=== PATIENT | male | born 1990 | race Caucasian/White ===

== ENCOUNTER 2018-09-03 15:28 | Emergency (ER) | payer BC ==
--- NOTE | 2018-09-03 15:55 | EDM.PDOC ---
ED HPI GENERAL MEDICAL PROBLEM - General Chief Complaint: Skin Complaint Stated Complaint: LEG PAIN Time Seen by Provider: 09/03/18 15:34 Source of Information: Reports: Patient History Limitations: Reports: No Limitations - History of Present Illness INITIAL COMMENTS - FREE TEXT/NARRATIVE: History of present illness: []Patient flew in from [place] 3 days ago and on the flight he noticed he had an ingrown hair on his upper inner left thigh. Working every day and this morning his pain became worse he decided to come in for evaluation. He denies any fevers , chills, vomiting, diarrhea, chest pain or shortness of breath. Have a history of DVTs. Review of systems: As per history of present illness and below otherwise all systems reviewed and negative. Past medical history: As per history of present illness and as reviewed below otherwise noncontributory. Surgical history: As per history of present illness and as reviewed below otherwise noncontributory. Social history: No reported history of drug or alcohol abuse. Family history: As per history of present illness and as reviewed below otherwise noncontributory. Physical exam: General: Well developed, well nourished in NAD HEENT: Atraumatic, normocephalic, pupils reactive, negative for conjunctival pallor or scleral icterus, mucous membranes moist, throat clear, neck supple, nontender, trachea midline. Lungs: Clear to auscultation, breath sounds equal bilaterally, chest nontender. Heart: S1S2, regular, negative for clicks, rubs, or JVD. Abdomen: NABS, Soft, nondistended, nontender. Negative for masses or hepatosplenomegaly. Negative for costovertebral tenderness. Pelvis: Stable nontender. Genitourinary: Deferred. Rectal: Deferred. Extremities: Upper left inner thigh erythematous with tender to touch. There is no abscess palpable or area of drainage there is an erythematous streak going down to his upper medial leg., negative for cords or calf pain. Neurovascular unremarkable. Neuro: Awake, alert, oriented. Cranial nerves II through XII unremarkable. Cerebellum unremarkable. Motor and sensory unremarkable throughout. Exam nonfocal. Skin:warm and dry Diagnostics: CBC, chemistry, blood cultures Therapeutics: Rocephin 1g ED Course: Stable Impression: Cellulitis with lymphangitis Prescriptions: Bactrim Plan: Follow-up with primary care within 1 week return to ER immediately if symptoms worsen or change. Definitive disposition and diagnosis as appropriate pending reevaluation and review of above. left thigh Pain Score (Numeric/FACES): 7 - Related Data Allergies Allergy/AdvReac Type Severity Reaction Status Date / Time No Known Allergies Allergy Verified 09/03/18 15:43 Home Meds: Home Meds Sulfamethoxazole/Trimethoprim [Bactrim Ds Tablet] 1 each PO BID #20 tablet 09/03 [Rx] Past Medical History - Past Health History Medical/Surgical History: Denies Medical/Surgical History Social & Family History - Family History Family Medical History: Noncontributory - Tobacco Use Smoking Status *Q: Never Smoker - Caffeine Use Caffeine Use: Reports: Coffee - Recreational Drug Use Recreational Drug Use: No ED ROS GENERAL - Review of Systems Review Of Systems: ROS reveals no pertinent complaints other than HPI. ED EXAM, SKIN/RASH Exam: See Below (See history of present illness) Course - Vital Signs Last Recorded V/S: Last Vital Signs Temp 98.3 F 09/03/18 15:43 Pulse 65 09/03/18 15:43 Resp 18 09/03/18 15:43 BP 149/96 H 09/03/18 15:45 Pulse Ox 97 09/03/18 15:43 - Orders/Labs/Meds Orders: Active Orders 24 hr Category Date Time Status COMPREHENSIVE METABOLIC PN,CMP [CHEM] Stat Lab 09/03/18 16:08 Received CULTURE BLOOD [BC] Stat Lab 09/03/18 16:08 Received CULTURE BLOOD [BC] Stat Lab 09/03/18 16:19 Received cefTRIAXone [Rocephin in Dextrose,Iso-Osm 1 GM/50 ML] 1 Med 09/03/18 16:20 Active gm Premix Bag 1 bag IV ONETIME Medication Orders Ceftriaxone Sodium/Dextrose 1 (gm/ Premix) 50 mls @ 100 mls/hr IV ONETIME ONE Stop: 09/03/18 16:49 Last Admin: 09/03/18 16:28 Dose: 100 mls/hr Labs: Laboratory Tests 09/03/18 Range/Units 16:08 WBC 11.08 H (4.0-11.0) K/uL RBC 5.26 (4.50-5.90) M/uL Hgb 15.6 (13.0-17.0) g/dL Hct 44.6 (38.0-50.0) % MCV 84.8 (80.0-98.0) fL MCH 29.7 (27.0-32.0) pg MCHC 35.0 (31.0-37.0) g/dL RDW Std Deviation 41.1 (28.0-62.0) fl RDW Coeff of Joshua 13 (11.0-15.0) % Plt Count 257 (150-400) K/uL MPV 10.80 (7.40-12.00) fL Neut % (Auto) 70.3 (48.0-80.0) % Lymph % (Auto) 19.7 (16.0-40.0) % Cass % (Auto) 9.2 (0.0-15.0) % Eos % (Auto) 0.7 (0.0-7.0) % Baso % (Auto) 0.1 (0.0-1.5) % Neut # (Auto) 7.8 H (1.4-5.7) K/uL Lymph # (Auto) 2.2 (0.6-2.4) K/uL Cass # (Auto) 1.0 H (0.0-0.8) K/uL Eos # (Auto) 0.1 (0.0-0.7) K/uL Baso # (Auto) 0.0 (0.0-0.1) K/uL Nucleated RBC % 0.0 /100WBC Nucleated RBCs # 0 K/uL Meds: Medications Generic Name Dose Route Start Last Admin Trade Name Freq PRN Reason Stop Dose Admin Ceftriaxone Sodium/Dextrose 1 50 mls @ 100 mls/hr 09/03/18 16:20 09/03/18 16: 28 gm/ Premix IV 09/03/18 16:49 100 mls/hr ONETIME ONE Administration Discontinued Medications Generic Name Dose Route Start Last Admin Trade Name Freq PRN Reason Stop Dose Admin Ceftriaxone Sodium 1,000 mg/ 1 mls @ 1 mls/sec 09/03/18 15:57 09/03/18 16:30 Lidocaine HCl IM 09/03/18 15:58 Not Given ONETIME ONE Departure - Departure Time of Disposition: 16:48 Disposition: Home, Self-Care 01 Condition: Good Clinical Impression: Cellulitis with lymphangitis - Discharge Information *PRESCRIPTION DRUG MONITORING PROGRAM REVIEWED*: No *COPY OF PRESCRIPTION DRUG MONITORING REPORT IN PATIENT STEPHANIE: No Prescriptions: Sulfamethoxazole/Trimethoprim [Bactrim Ds Tablet] 1 each PO BID #20 tablet Forms: ED Department Discharge Additional Instructions: The following information is given to patients seen in the emergency department who are being discharged to home. This information is to outline your options for follow-up care. We provide all patients seen in our emergency department with a follow-up referral. The need for follow-up, as well as the timing and circumstances, are variable depending upon the specifics of your emergency department visit. If you don't have a primary care physician on staff, we will provide you with a referral. We always advise you to contact your personal physician following an emergency department visit to inform them of the circumstance of the visit and for follow-up with them and/or the need for any referrals to a consulting specialist. The emergency department will also refer you to a specialist when appropriate. This referral assures that you have the opportunity for follow-up care with a specialist. All of these measure are taken in an effort to provide you with optimal care, which includes your follow-up. Under all circumstances we always encourage you to contact your private physician who remains a resource for coordinating your care. When calling for follow-up care, please make the office aware that this follow-up is from your recent emergency room visit. If for any reason you are refused follow-up, please contact the [facility] Emergency Department at and asked to speak to the emergency department charge nurse. Take meds as directed, follow up with your primary care physician, return to ER if symptoms worsen or change. [facility] [address] [place] [id number] - My Orders Last 24 Hours: My Active Orders 09/03/18 16:08 COMPREHENSIVE METABOLIC PN,CMP [CHEM] Stat CULTURE BLOOD [BC] Stat 09/03/18 16:19 CULTURE BLOOD [BC] Stat 09/03/18 16:20 cefTRIAXone [Rocephin in Dextrose,Iso-Osm 1 GM/50 ML] 1 gm Premix Bag 1 bag IV ONETIME - Assessment/Plan Last 24 Hours: My Active Orders 09/03/18 16:08 COMPREHENSIVE METABOLIC PN,CMP [CHEM] Stat CULTURE BLOOD [BC] Stat 09/03/18 16:19 CULTURE BLOOD [BC] Stat 09/03/18 16:20 cefTRIAXone [Rocephin in Dextrose,Iso-Osm 1 GM/50 ML] 1 gm Premix Bag 1 bag IV ONETIME
[2018-09-03] MEDS ORDERED: cefTRIAXone 1,000 MG in Lidocaine 1% 1 ML IM ONE (15:57)
[2018-09-03] MEDS ORDERED: cefTRIAXone 1 GM in Premix Bag 1 BAG IV ONE (16:20)
[2018-09-03 16:49] LABS: CHLORIDE,CL 103 mmol/L (98-107); SODIUM,NA 140 mmol/L (136-148)
== END 2018-09-03 17:20 | disposition home or self-care (01) ==
LOC: MW.ED 15:28
DX: L03.116 Cellulitis of left lower limb (principal)
CPT/HCPCS: 36415; 80053; 85025; 87040; 96365; 99283; J0696

== ENCOUNTER 2019-07-15 07:29 | Emergency (ER) | payer BC ==
--- NOTE | 2019-07-15 08:21 | EDM.PDOC ---
ED HPI GENERAL MEDICAL PROBLEM - General Chief Complaint: General Stated Complaint: POSSIBLE FLU Time Seen by Provider: 07/15/19 07:35 Source of Information: Reports: Patient - History of Present Illness INITIAL COMMENTS - FREE TEXT/NARRATIVE: Patient states that he thinks he has the flu. Complains of throat pain which began 2 days ago. Reports dry cough, bilateral ear pain, subjective fevers. Denies night sweats. Denies nausea, vomiting, diarrhea. No myalgias. Tried TheraFlu and NyQuil; symptoms persist. Ear Pain Score (Numeric/FACES): 10 - Related Data Allergies Allergy/AdvReac Type Severity Reaction Status Date / Time No Known Allergies Allergy Verified 07/15/19 07:43 Home Meds: Home Meds Oseltamivir [Tamiflu] 75 mg PO BID #10 cap 07/15/19 [Rx] Past Medical History - Past Health History Medical/Surgical History: Denies Medical/Surgical History - Infectious Disease History Infectious Disease History: Reports: None - Past Surgical History GI Surgical History: Reports: Appendectomy Social & Family History - Family History Family Medical History: Noncontributory (History of high blood pressure.) - Tobacco Use Smoking Status *Q: Never Smoker - Caffeine Use Caffeine Use: Reports: Coffee - Recreational Drug Use Recreational Drug Use: No ED ROS GENERAL - Review of Systems Review Of Systems: See Below (Systems is positive for ear pain, cough, throat pain, decreased energy, decreased appetite. Review of systems is negative for nausea, vomiting, diarrhea, night sweats, chills, myalgias.) ED EXAM, GENERAL - Physical Exam Exam: See Below Free Text/Narrative:: HISTORY AND PHYSICAL: Gen: Alert, interactive, well-appearing, no acute distress. Nontoxic. No diaphoresis. Verbal. HEENT: Atraumatic, normocephalic, pupils reactive, negative for conjunctival pallor or scleral icterus, mucous membranes moist. Tonsils are pink, no swelling, pus, erythema, exudate. Handling oral secretions well. No dysphonia or trismus. Neck: supple, nontender, trachea midline. No cervical adenopathy. Lungs: Clear to auscultation, breath sounds equal bilaterally, chest nontender. Heart: S1S2, regular, negative for clicks, rubs, or JVD. Abdomen: Soft, nondistended, nontender. Negative for masses or hepatosplenomegaly. Negative for costovertebral tenderness. Skin: Warm, dry, intact, good turgor. Extremities: Atraumatic, negative for cords or calf pain. Neurovascular unremarkable. Neuro: Awake, alert, oriented. Cranial nerves II through XII unremarkable. Cerebellum unremarkable. Motor and sensory unremarkable throughout. Exam nonfocal. Course - Vital Signs Last Recorded V/S: Last Vital Signs Temp 99.1 F 07/15/19 08:45 Pulse 84 07/15/19 08:45 Resp 16 07/15/19 08:45 BP 137/88 07/15/19 08:45 Pulse Ox 95 07/15/19 08:45 - Orders/Labs/Meds Orders: Active Orders 24 hr Category Date Time Status Ready for Discharge [RC] PER UNIT ROUTINE Care 07/15/19 08:41 Active CULTURE STREP A CONFIRMATION [] Stat Lab 07/15/19 07:40 Results STREP SCRN A RAPID W CULT CONF [] Stat Lab 07/15/19 07:40 Results - Re-Assessments/Exams Free Text/Narrative Re-Assessment/Exam: 07/15/19 08:32 patient is positive for influenza A; his influenza B and rapid strep test were negative. We will give the patient a course of Tamiflu. Also, his pressure at triage was above normal. I advised him of this. I told him he would need to see a primary care physician within a week for repeat blood pressure check; if advised by the primary care physician that his pressure remains elevated, he would then need to discuss with his primary care physician what medications he should take to control his pressure. In the meantime, patient has been advised to avoid any decongestants or [id number] products which contain phenylephrine or pseudoephedrine. I have recommended that he try Coricidin HBP or Mucinex DM, as neither of these would have any significant effect on his blood pressure. He is asked to follow-up with a primary care physician within 5 days; return to the emergency department in case of neck stiffness, fever over 102, or any other new, changing, or worsening symptoms. Diagnostic impression is: influenza. Departure - Departure Time of Disposition: 08:38 Disposition: Home, Self-Care 01 Condition: Good Clinical Impression: Influenza - Discharge Information *PRESCRIPTION DRUG MONITORING PROGRAM REVIEWED*: Not Applicable *COPY OF PRESCRIPTION DRUG MONITORING REPORT IN PATIENT STEPHANIE: Not Applicable Prescriptions: Oseltamivir [Tamiflu] 75 mg PO BID #10 cap Instructions: Influenza, Adult, [id number] Referrals: PCP,None [Primary Care Provider] - 1 Week ([facility] [address] [place] [id number] ) Forms: ED Department Discharge Additional Instructions: Your blood pressure was above normal during this emergency department visit. Within the next week, please see your primary care physician for repeat blood pressure check. If you are advised at that time that your pressure is still above normal, please ask your primary care provider what you should take to control your pressure. We have given you a referral to the internal medicine clinic, where you can get a new primary care provider, because you stated that you do not have one currently. Please be advised that if you wish to take decongestants for your symptoms, you should avoid any [id number]-[id number] products which contain phenylephrine or pseudoephedrine. This is because both of those compounds can raise blood pressure. If you need to take a decongestant, please take Coricidin HBP or Mucinex DM; neither of these are expected to have any significant effect on your blood pressure. We have given you a prescription for Tamiflu to address your diagnosis of influenza. Tamiflu does not cure the flu, but it normally decreases the duration of symptoms. Please take it according to prescription. The following information is given to patients seen in the emergency department who are being discharged to home. This information is to outline your options for follow-up care. We provide all patients seen in our emergency department with a follow-up referral. The need for follow-up, as well as the timing and circumstances, are variable depending upon the specifics of your emergency department visit. If you don't have a primary care physician on staff, we will provide you with a referral. We always advise you to contact your personal physician following an emergency department visit to inform them of the circumstance of the visit and for follow-up with them and/or the need for any referrals to a consulting specialist. The emergency department will also refer you to a specialist when appropriate. This referral assures that you have the opportunity for follow-up care with a specialist. All of these measure are taken in an effort to provide you with optimal care, which includes your follow-up. Under all circumstances we always encourage you to contact your private physician who remains a resource for coordinating your care. When calling for follow-up care, please make the office aware that this follow-up is from your recent emergency room visit. If for any reason you are refused follow-up, please contact the [facility] Emergency Department at and asked to speak to the emergency department charge nurse. [facility] [address] [place] [address] [id number] [address] [address] Sepsis Event Note - Evaluation Sepsis Screening Result: No Definite Risk - Focused Exam Date Exam was Performed: 07/15/19 Time Exam was Performed: 23:03 - My Orders Last 24 Hours: My Active Orders 07/15/19 07:40 CULTURE STREP A CONFIRMATION [RM] Stat STREP SCRN A RAPID W CULT CONF [RM] Stat 07/15/19 08:41 Ready for Discharge [RC] PER UNIT ROUTINE - Assessment/Plan Last 24 Hours: My Active Orders 07/15/19 07:40 CULTURE STREP A CONFIRMATION [RM] Stat STREP SCRN A RAPID W CULT CONF [RM] Stat 07/15/19 08:41 Ready for Discharge [RC] PER UNIT ROUTINE
== END 2019-07-15 09:17 | disposition home or self-care (01) ==
LOC: MW.ED 07:29
DX: J10.1 Influenza due to other identified influenza virus with other respiratory manifestations (principal)
CPT/HCPCS: 87081; 87804; 87880-QW; 99283